=== PATIENT | male | born 1995 | race Caucasian/White ===

== ENCOUNTER 2016-07-04 15:19 | Emergency (ER) | payer SELFPAY ==
[2016-07-04 16:53] LABS: APPEARANCE,URINE SLIGHTLY-CLOUDY; BILIRUBIN,URINE NEGATIVE (NEGATIVE); GLUCOSE, URINE NEGATIVE (NEGATIVE); KETONES,URINE NEGATIVE (NEGATIVE); LEUKOCYTE ESTERASE,URINE NEGATIVE (NEGATIVE); NITRITE,URINE NEGATIVE (NEGATIVE); PROTEIN,URINE NEGATIVE (NEGATIVE); URINE SPECIFIC GRAVITY 1.016; UROBILINOGEN,URINE NEGATIVE mg/dL (<2.0)
[2016-07-04 17:10] VITALS: BP 132/65
--- NOTE | 2016-07-04 17:19 | ER Document Report ---
ED General - General Chief Complaint: Testicular Pain Stated Complaint: TESTICLE PAIN Time Seen by Provider: 07/04/16 15:42 TRAVEL OUTSIDE OF THE [place] IN LAST 30 DAYS: No - HPI Patient complains to provider of: right testicle pain Notes: Patient coming in for evaluation of testicle pain ongoing for the last 4 days. Patient denies any fever chills nausea vomiting dysuria. Patient denies any penile discharge. Patient denies any trauma to the groin region. - Related Data Allergies/Adverse Reactions: risperidone [From Risperdal] Allergy (Severe, Verified 07/04/16 15:37) Anaphylaxis haloperidol [From Haldol] Allergy (Verified 07/04/16 15:37) haloperidol lactate [From Haldol] Allergy (Verified 07/04/16 15:37) Past Medical History - Social History Smoking Status: Current Every Day Smoker Chew tobacco use (# tins/day): No Frequency of alcohol use: Occasional Drug Abuse: None Family History: Reviewed & Not Pertinent Pulmonary Medical History: Reports: Hx Asthma Renal/ Medical History: Denies: Hx Peritoneal Dialysis Psychiatric Medical History: Reports: Hx Attention Deficit Hyperactivity Disorder, Hx Bipolar Disorder - and mood disorder, Hx Depression, Hx Schizophrenia Past Surgical History: Reports: Hx Cholecystectomy, Hx Myringotomy - Immunizations Immunizations up to date: Yes Hx Diphtheria, Pertussis, Tetanus Vaccination: Yes Review of Systems - Review of Systems Constitutional: No symptoms reported EENT: No symptoms reported Cardiovascular: No symptoms reported Respiratory: No symptoms reported Gastrointestinal: No symptoms reported Genitourinary: Other - Testicle pain Male Genitourinary: No symptoms reported Musculoskeletal: No symptoms reported Skin: No symptoms reported Hematologic/Lymphatic: No symptoms reported Neurological/Psychological: No symptoms reported -: Yes All other systems reviewed and negative Physical Exam - Vital signs Vitals: Temp Pulse Resp BP Pulse Ox 92 F L 98 16 149/68 H 98 07/04/16 15:20 07/04/16 15:20 07/04/16 15:20 07/04/16 15:20 07/04/16 15:20 Interpretation: Normal - General General appearance: Appears well, Alert - HEENT Head: Normocephalic, Atraumatic Eyes: Normal Pupils: PERRL - Respiratory Respiratory status: No respiratory distress Chest status: Nontender Breath sounds: Normal Chest palpation: Normal - Cardiovascular Rhythm: Regular Heart sounds: Normal auscultation Murmur: No - Abdominal Inspection: Normal Distension: No distension Bowel sounds: Normal Tenderness: Nontender Organomegaly: No organomegaly - Genitourinary Inspection: Normal Cremasteric reflex: Normal Scrotum: Normal - Back Back: Normal, Nontender - Extremities General upper extremity: Normal inspection, Nontender, Normal color, Normal ROM , Normal temperature General lower extremity: Normal inspection, Nontender, Normal color, Normal ROM , Normal temperature, Normal weight bearing. No: Rupa's sign - Neurological Neuro grossly intact: Yes Cognition: Normal Orientation: AAOx4 Kris Coma Scale Eye Opening: Spontaneous Kris Coma Scale Verbal: Oriented Dunning Coma Scale Motor: Obeys Commands Dunning Coma Scale Total: 15 Speech: Normal Motor strength normal: LUE, RUE, LLE, RLE Sensory: Normal - Psychological Associated symptoms: Normal affect, Normal mood - Skin Skin Temperature: Warm Skin Moisture: Dry Skin Color: Normal Course - Re-evaluation Re-evalutation: 07/04/16 17:01 Ultrasound shows signs of cyst formation could be possible etiology the patient' s pain. Urinalysis does not show any critical etiology. Patient with discharged home with prescription for anti-inflammatory medication. Patient's follow-up with his primary care physician for further evaluation. 07/04/16 17:38 - Vital Signs Vital signs: Temp Pulse Resp BP Pulse Ox 92 F L 98 16 149/68 H 98 07/04/16 15:20 07/04/16 15:20 07/04/16 15:20 07/04/16 15:20 07/04/16 15:20 Discharge - Discharge Clinical Impression: acute testicle pain Instructions: Testicular Pain ([facility]), Anti-Inflammatory Medication ([facility]) Additional Instructions: Your ultrasound that showed bilateral cysts more likely this causes your pain. Please make sure you where underwear it is very supportive. Return to the ER symptoms worsen. Take anti-inflammatory medication as prescribed. Prescriptions: Naproxen [Naprosyn 250 mg Tablet] 250 mg PO DAILY PRN #30 tablet PRN Reason:
== END 2016-07-04 17:32 | disposition home or self-care (01) ==
LOC: ER 15:19
DX: N50.811 Right testicular pain (principal); Z87.892 Personal history of anaphylaxis; Z88.8 Allergy status to other drugs, medicaments and biological substances; J45.909 Unspecified asthma, uncomplicated; F17.200 Nicotine dependence, unspecified, uncomplicated
CPT/HCPCS: 76870; 81001; 93976; 99284